=== PATIENT | male | born 1955 | race Caucasian/White ===

== ENCOUNTER 2019-08-10 12:30 | Inpatient (IN) ==
[2019-08-10] MEDS ORDERED: ASPIRIN PO ONE (12:35)
[2019-08-10 12:46] LABS: BASO# 0.01 X1000 (0.0-0.2); BASO% 0.1 % (0.0-0.8); EOS# 0.09 X1000 (0.0-0.7); EOS% 0.9 % (0.0-10.0); HEMOGLOBIN 14.6 g/dL (14.0-18.0); IMM GRAN# 0.01 X1000 (0.0-0.04); IMM GRAN% 0.1 % (0.0-0.5); LYMPH# 3.28 X1000 (1.2-3.4); LYMPH% 33.9 % (20.5-51.1); MCH 28.2 PG (27-31); MCHC 33.2 g/dL (33-37); MCV 85.1 FL (81-99); MONO# 0.71 X1000 (0.11-0.59); MONO% 7.3 % (1.7-9.3); MPV 10.2 FL (7.4-10.4); NEUT# 5.58 X1000 (1.4-6.5); NEUT% 57.7 % (42.2-75.2); PLT 310 X1000 (130-400); RBC 5.17 XMIL (4.7-6.1); RDW 14.9 % (11.5-14.5); WBC 9.68 X1000 (4.8-10.8)
[2019-08-10 12:58] LABS: INR 1.61; PROTIME 20.1 Seconds (11.0-16.0)
[2019-08-10 12:59] LABS: PTT 34.5 Seconds (22.3-41.8)
--- NOTE | 2019-08-10 13:05 | EKG Report ---
Test Performed on : 08/10/2019 12:35:42 PM Test Reason : cp Blood Pressure : / mmHG Vent. Rate : 064 BPM Atrial Rate : 064 BPM P-R Int : 158 ms QRS Dur : 092 ms QT Int : 392 ms P-R-T Axes : 075 072 082 degrees QTc Int : 404 ms Sinus rhythm. with occasional premature ventricular complexes. Otherwise normal ECG When compared with ECG of 17-JUL-2016 06:34, premature ventricular complexes. are now present Confirmed by Rafael Florez MD ([id number]) on 08/12/2019 9:30:58 PM
[2019-08-10 13:29] LABS: AGAP 13; BUN 12 mg/dL (8-22); CHLORIDE 106 mmol/L (98-107); COSMO 287; CREATININE 0.7 mg/dL (0.7-1.2); GLUCOSE 175 mg/dL (70-104); POTASSIUM 4.5 mmol/L (3.5-5.1); SODIUM 142 mmol/L (136-145); TCO2 23 mmol/L (25-35)
[2019-08-10 13:30] LABS: ALBUMIN 4.2 g/dL (3.5-5.0); ALKALINE PHOSPHATASE 97 U/L (32-122); CK PROFILE 100 U/L (24-204); GOT 21 U/L (10-34); GPT 29 U/L (10-44); TOTAL PROTEIN 7.5 g/dL (6.3-8.3)
--- NOTE | 2019-08-10 13:55 | Diag Imaging Result Doc PS360 ---
EXAM: CHEST-2 VIEWS HISTORY: cp TECHNIQUE: Two views COMPARISON: 09/29/2017 FINDINGS: The lungs are well expanded. The heart is not enlarged. The vessels are not distended. There are no infiltrates. No pleural effusions. Scattered granuloma. IMPRESSION: No acute abnormality. Electronically signed by Damian Andrew 08/10/2019 1:52 PM
[2019-08-10] MEDS ORDERED: TYLENOL PO PRN (15:25)
[2019-08-10] MEDS ORDERED: ZOFRAN IV PRN (15:25)
[2019-08-10] MEDS ORDERED: MORPHINE IV PRN (15:25)
[2019-08-10] MEDS ORDERED: NITROGLYCERIN SL PRN (15:25)
--- NOTE | 2019-08-10 15:26 | Diag Imaging Result Doc PS360 ---
EXAM: CT ANGIOGRM PULMONARY ARTERIES HISTORY: chest pain; sob; hx of PE TECHNIQUE: CT abdomen and pelvis with intravenous contrast. Pulmonary arterial protocol with MIP images. COMPARISON: 07/17/2016 FINDINGS: Normal opacification of the pulmonary arteries and their proximal branches. No aortic aneurysm or dissection. No cardiomegaly. Mild vascular distention. There are calcified mediastinal and hilar lymph nodes with scattered granuloma. No pleural effusions. No consolidation. No bronchiectasis. There are two oblong noncalcified densities measuring 6 x 8 mm in the mid right lung on images 83 and 85. There is also a 4 x 6 mm noncalcified nodule inferiorly in the right lower lobe on image 104. There is basilar atelectasis. Limited images through the upper abdomen reveal a stable left adrenal nodule. IMPRESSION: 1.No pulmonary emboli 2.Mild pulmonary edema 3.There is evidence of a prior granulomatous infection 4.Small nonspecific right lung nodules 5.Basilar atelectasis This exam was performed using automated exposure control, adjustment of mA or kV according to patient size, and/or use of iterative reconstruction technique. Electronically signed by Damian Andrew 08/10/2019 3:24 PM
--- NOTE | 2019-08-10 15:39 | PROVIDER DOCUMENTATION ---
This chart was entered by Martínez Henriquez Scribe, acting as scribe for Rafael Florez MD. HPI-Chest Pain - General Chief Complaint: Chest Pain Stated Complaint: CHEST PAIN Time Seen by Provider: 08/10/19 12:35 Source: patient, family Allergies/Adverse Reactions: Patient Allergies Allergy/AdvReac Type Severity Reaction Status Date / Time adhesive Allergy RASH Verified 02/16/18 12:55 iodine Allergy RASH Verified 02/16/18 12:55 latex Allergy RASH Verified 02/16/18 12:55 Home Medications: Home Medication List Medication Instructions Recorded Confirmed Last Taken Type ATORVAstatin [Lipitor] 80 mg PO HS 07/16/16 02/16/18 07/29/16 20:00 History Metformin [Glucophage] 1,000 mg PO DAILY 07/16/16 02/16/18 07/30/16 07:00 History Rivaroxaban [Xarelto] 20 mg PO DAILY #180 tablet 07/19/16 02/16/18 07/30/16 07:00 Rx Acetaminophen with Codeine 1 ea PO Q6H PRN PRN #14 tab 02/16/18 Unknown Rx [Tylenol with Codeine #3 Tablet] Insulin Humulin 70/30 [Humulin 50 units SQ WSUPPER 02/16/18 02/16/18 Unknown History 70/30] Insulin Humulin 70/30 [Humulin 56 units SQ QAM 02/16/18 02/16/18 Unknown History 70/30] Metoprolol Tartrate 12.5 mg PO BID 02/16/18 02/16/18 Unknown History Pantoprazole Sodium 40 mg PO DAILY 02/16/18 02/16/18 Unknown History - History of Present Illness-CP Nature of Presenting Problem: 64 yom presents to the ed w/ c/o CP. pt states onset yesterday w/ multi episodes w/ 4 episodes today. pt states CP (int) rads into neck and Lt arm ,"different pain than before." pt states CP usually starts in Rt arm. " pt states CP stays for 1hr-2 hrs then slacks off ,then when i go to take Nitro the pain slacks off again." pt states "when im laying down CP is ok when i get up or walk CP comes back." pt states having 2 cardiac stents one in 2009 2nd in 2012. pt has hx of A-FIB and hx of 1 heart attack. pt states " saw Heart physician month ago to check stints, had echo ,treadmill w/ chemical, everything checked out fine." pt states " N-last night , and broke out into sweat around 10 am this morning , had to stop walking." Location: reports: other (Lt sided) Chest Pain Radiation: reports: neck, other (LT arm) Quality of Pain: reports: aching Severity in ED: mild Onset/Duration: 24 hours ago Timing: intermittent Context/Activities at Onset: reports: light activity Modifying Factors: improves with: lying down (or sitting). worse with: movement Associated Symptoms: reports: denies symptoms Nitro Today/Relief: no nitro taken today Aspirin Treatment Today: provided by ED Prior Chest Pain/Cardiac Workup: reports: heart attack, other (hx of A-Fib , 2 cardiac stent) Similar Symptoms Previously?: No Recently Seen Here or By Another Healthcare Provider: No Review of Systems - Adult - REVIEW OF SYSTEMS - ADULT Constitutional: denies: chills, fever Eyes: reports: no symptoms reported Ears, Nose, Mouth & Throat: reports: no symptoms reported Cardiovascular: reports: see HPI, chest pain. denies: palpitations, syncope Respiratory: reports: no symptoms reported Gastrointestinal: denies: abdominal pain, constipation, diarrhea, vomiting Genitourinary: reports: no symptoms reported Musculoskeletal: reports: see HPI, neck pain Integumentary: reports: no symptoms reported Neurological: reports: no symptoms reported Psychiatric: reports: no symptoms reported Endocrine: reports: no symptoms reported Hematologic/Lymphatic: reports: no symptoms reported Allergic/Immunologic: reports: no symptoms reported All Other Systems: Reviewed and Negative Past History - Adult - PAST MEDICAL HISTORY-ADULT Review of Records: reports: Old Records Reviewed, Nursing Assessment Review, Medications Reviewed, Social history reviewed & non-contributory. Major Childhood Illnesses: reports: denies history Cardiovascular: reports: CAD, HTN, hyperlipidemia, MD Respiratory: reports: denies history Gastrointestinal: reports: GERD Obstetrical/Gynecological: reports: denies history Genitourinary: reports: kidney stones (passed renal stones), other (TURP July 15, 2016) Musculoskeletal: reports: denies history Neurological: reports: denies history Psychiatric: reports: denies history Endocrine/Immune: reports: Diabetes Other Conditions: reports: denies history - PRIOR SURGERIES/PROCEDURES Surgical/Procedure History: reports: cardiac stent, other (TURP) - IMMUNIZATION STATUS Childhood Immunizations: See Nurse Assessment Flu Vaccine: See Nurse Assessment - FAMILY HISTORY Family History: reviewed, not pertinent - SOCIAL HISTORY Smoking: quit greater than 1 year, cigarettes Substance Use: denies Physical Exam-General - PHYSICAL EXAM-ADULT Initial Vital Signs Reviewed: Yes - CONSTITUTIONAL General Appearance: appears well, alert, mild distress - NECK Neck: normal inspection - RESPIRATORY Respiratory: chest non-tender, lungs clear, normal breath sounds - CARDIOVASCULAR Cardiovascular: normal peripheral pulses, regular rate, rhythm - GASTROINTESTINAL (ABDOMEN) Abdominal Exam: normal bowel sounds, soft, tenderness (w/ palpaltion) - GENITOURINARY Male Genitalia: deferred Rectal Exam: deferred Hemoccult Exam: deferred - MUSCULOSKELETAL Extremity: normal inspection - SKIN Integumentary: normal color, normal turgor, warm/dry - NEUROLOGIC Neurologic: grossly normal, no motor/sensory deficits - PSYCHIATRIC Psych/Mental Status: normal mood/affect, normal thought content, normal thought process, oriented x 3 - HEART Score HEART Score: Age: 45-65 Years Progress - PLAN OF CARE/RESULTS Progress/Plan/Lab Results: Vital Signs - 8 hr 08/10/19 12:32 08/10/19 13:15 08/10/19 15:09 Temperature 97.9 F Pulse Rate 70 62 60 Respiratory Rate 20 16 14 Blood Pressure 146/76 124/68 149/77 O2 Sat by Pulse Oximetry 95 93 L 96 Laboratory Results - last 24 hr 08/10/19 08/10/19 08/10/19 12:40 12:40 12:40 WBC 9.68 RBC 5.17 Hgb 14.6 Hct 44.0 MCV 85.1 MCH 28.2 MCHC 33.2 RDW Std Deviation 14.9 H Plt Count 310 MPV 10.2 Immature Gran % (Auto) 0.1 Neut % (Auto) 57.7 Lymph % (Auto) 33.9 [place] % (Auto) 7.3 Eos % (Auto) 0.9 Baso % (Auto) 0.1 Immature Gran # (Auto) 0.01 Neut # (Auto) 5.58 Lymph # (Auto) 3.28 [place] # (Auto) 0.71 H Eos # (Auto) 0.09 Baso # (Auto) 0.01 PT INR PTT (Actin FS) D-Dimer, Quantitative Sodium 142 Potassium 4.5 Chloride 106 Carbon Dioxide 23 L Anion Gap 13 BUN 12 Creatinine 0.7 BUN/Creatinine Ratio 17 Glucose 175 H Calculated Osmolality 287 Calcium 10.0 Total Bilirubin 0.40 AST 21 ALT 29 Alkaline Phosphatase 97 Creatine Kinase 100 Troponin T Kzc-V-Ioliqerdacg Pept 142 Total Protein 7.5 Albumin 4.2 Globulin 3.0 Albumin/Globulin Ratio 1.0 Plasma Lactate 08/10/19 08/10/19 08/10/19 12:40 12:40 12:40 WBC RBC Hgb Hct MCV MCH MCHC RDW Std Deviation Plt Count MPV Immature Gran % (Auto) Neut % (Auto) Lymph % (Auto) [place] % (Auto) Eos % (Auto) Baso % (Auto) Immature Gran # (Auto) Neut # (Auto) Lymph # (Auto) [place] # (Auto) Eos # (Auto) Baso # (Auto) PT 20.1 H INR 1.61 PTT (Actin FS) 34.5 D-Dimer, Quantitative < 0.27 Sodium Potassium Chloride Carbon Dioxide Anion Gap BUN Creatinine BUN/Creatinine Ratio Glucose Calculated Osmolality Calcium Total Bilirubin AST ALT Alkaline Phosphatase Creatine Kinase Troponin T < 0.010 Fln-K-Eenbcxminbn Pept Total Protein Albumin Globulin Albumin/Globulin Ratio Plasma Lactate 08/10/19 08/10/19 08/10/19 14:39 14:39 14:39 WBC RBC Hgb Hct MCV MCH MCHC RDW Std Deviation Plt Count MPV Immature Gran % (Auto) Neut % (Auto) Lymph % (Auto) [place] % (Auto) Eos % (Auto) Baso % (Auto) Immature Gran # (Auto) Neut # (Auto) Lymph # (Auto) [place] # (Auto) Eos # (Auto) Baso # (Auto) PT INR PTT (Actin FS) D-Dimer, Quantitative Sodium Potassium Chloride Carbon Dioxide Anion Gap BUN Creatinine BUN/Creatinine Ratio Glucose Calculated Osmolality Calcium Total Bilirubin AST ALT Alkaline Phosphatase Creatine Kinase 92 Troponin T < 0.010 Sae-J-Dmoethrifwv Pept Total Protein Albumin Globulin Albumin/Globulin Ratio Plasma Lactate 2.0 Orders Category Date Time Status Admit - [facility] Routine AdmDCTranf 08/10/19 15:25 Active Cardiac Monitoring DIRECTED Care 08/10/19 12:36 Completed Oxygen Therapy- ED Nursing DIRECTED Care 08/10/19 12:36 Active Saline Loc NOW Care 08/10/19 12:36 Completed Update & Confirm Home Medicati ROUTINE Care 08/10/19 15:25 Active Diabetic Diet Diet 08/10/19 15:25 Active CHEST-2 VIEWS [RAD] Stat Exams 08/10/19 12:[address] ANGIOGRM PULMONARY ARTERIES [CT] Stat Exams 08/10/19 14:08 Completed C REACTIVE PROT QUANT [CHEM] Stat Lab 08/10/19 12:40 Received CBC WITH ELECTRONIC DIFF [HEME] Stat Lab 08/10/19 12:40 Completed CK PROFILE [SP CHEM] Stat Lab 08/10/19 12:40 Completed CK PROFILE [SP CHEM] Stat Lab 08/10/19 14:39 Completed CK TOTAL [CHEM] Q8H Lab 08/10/19 15:30 Ordered CK TOTAL [CHEM] Q8H Lab 08/10/19 23:30 Ordered CK TOTAL [CHEM] Q8H Lab 08/11/19 07:30 Ordered COMPREHENSIVE METABOLIC PANEL [CHEM] Stat Lab 08/10/19 12:40 Completed D-DIMER [COAG] Stat Lab 08/10/19 12:40 Completed LACTATE, PLASMA [CHEM] Stat Lab 08/10/19 14:39 Completed PRO B-NATRIURETIC PEPTIDE Stat Lab 08/10/19 12:40 Completed PROTIME WITH INR [COAG] Stat Lab 08/10/19 12:40 Completed PTT [COAG] Stat Lab 08/10/19 12:40 Completed TROPONIN T Q8H Lab 08/10/19 15:30 Ordered TROPONIN T Q8H Lab 08/10/19 23:30 Ordered TROPONIN T Q8H Lab 08/11/19 07:30 Ordered TROPONIN T Stat Lab 08/10/19 12:40 Completed TROPONIN T Stat Lab 08/10/19 14:39 Completed Acetaminophen [Tylenol] Med 08/10/19 15:25 Active 650 mg PO Q6H PRN PRN Aspirin Med 08/11/19 09:00 Active 325 mg PO DAILY Aspirin Med 08/10/19 12:35 Discontinued 325 mg PO NOW ONE Morphine Med 08/10/19 15:25 Active See Dose Instructions IV Q5M PRN PRN Nitroglycerin Sl [Nitroglycerin] Med 08/10/19 15:25 Active 0.4 mg SL Q5M PRN PRN Ondansetron [Zofran] Med 08/10/19 15:25 Active 4 mg IV Q4H PRN PRN CP/SOB/Palp >45 yrs of Age Stat Oth 08/10/19 12:35 Ordered EKG [EKG] Stat Ther 08/10/19 12:36 Draft EKG [EKG] Stat Ther 08/10/19 14:02 Ordered Echo Spec/Color Doppler Routine Ther 08/10/19 15:25 Ordered Venous U/S Bilateral Legs Routine Ther 08/10/19 15:17 Ordered Transfer/Admit Order [TRANSFER] Routine Transfer 08/10/19 15:19 Ordered Result Diagrams: 08/10/19 12:40 08/10/19 12:40 - EKG 1 Time of EKG reading by physician:: 12:35 EKG Read and Signed by:: Rafael Florez EKG Interpretation (*Must complete 3 of following elements*): Normal Rate: 64 Rhythm: sinus rhythm w/ occasional premature ventricular complexes [place]: normal QRS: normal DC Interval: normal ST Wave: normal Comments: Voltage criteria for Lt ventricular hypertrophy/prolonged QT - XRAY 1 XRAY Study: Chest Impression: Normal, See EMR Report ( EXAM: CHEST-2 VIEWS HISTORY: cp TECHNIQUE: Two views COMPARISON: 09/29/2017 FINDINGS: The lungs are well expanded. The heart is not enlarged. The vessels are not distended. There are no infiltrates. No pleural effusions. Scattered granuloma. IMPRESSION: No acute abnormality. Electronically signed by Damian Andrew 08/10/2019 1:52 PM 08/10/19 1352 Interpreting Physician: Damian Andrew MD Dictated Date/Time: 08/10/19 1352 cc: Rafael Florez MD; Lee Ann Ashley) - CONSULTS/PCP/HOSPITALIST Notification #1 *Consult/PCP/Hospitalist*: consult w/ [facility] Time Discussed: 13:56 Consult Disposition: Admit #2 Consult: consult w/ hSeldon Time Discussed: 15:19 (check on bed placement) Consult Disposition: Admit Departure - Departure Date of Disposition Decision: 08/10/19 Time of Disposition Decision: 15:39 DIAGNOSIS: Anginal pain, CAD (coronary artery disease) Disposition: ADMITTED INPATIENT 09 Certified Medical Emergency: Emergent Condition: Stable Referrals and Follow-Ups: Lee Ann Ashley CRNP [Primary Care Provider] - - Critical Care Note This patient required my direct & personal management of CC.: No Attestation - Physician/ AILEEN Attestation Patient care was provided by Advanced Practice Provider:: No The physician spent face to face time with patient:: Yes Advanced Practice Provider documentation review:: Supervising physician onsite and consulted in the evaluation and care of this patient. The physician did have a face to face encounter with the patient. This chart was documented by the indicated scribe, (Martínez Henriquez, Adeel) and accurately reflects the services I performed and decisions made by me, Rafael Florez MD, as attested by the provider's signature.
--- NOTE | 2019-08-10 17:20 | EKG Report ---
Test Performed on : 08/10/2019 5:07:05 PM Test Reason : repeat Blood Pressure : / mmHG Vent. Rate : 061 BPM Atrial Rate : 061 BPM P-R Int : 166 ms QRS Dur : 096 ms QT Int : 408 ms P-R-T Axes : 057 055 070 degrees QTc Int : 410 ms Sinus rhythm. with occasional premature ventricular complexes. Septal infarct , age undetermined Abnormal ECG When compared with ECG of 10-AUG-2019 12:35, (Unconfirmed) Septal infarct is now present Confirmed by Rafael Florez MD ([id number]) on 08/12/2019 9:28:40 PM
[2019-08-10] MEDS ORDERED: LOVENOX SUBQ SCH (20:00)
--- NOTE | 2019-08-10 20:06 | Diag Imaging Result Doc PS360 ---
EXAM: CT ABDOMEN W/CONTRAST HISTORY: rebound tenderness TECHNIQUE: CT abdomen with contrast COMPARISON: 02/16/2018 FINDINGS: No inflammation about the gallbladder. There is mild fatty infiltration of the liver. No splenomegaly. No inflammation about the pancreas. Stable small left adrenal nodule. Normal right adrenal gland. Normal kidneys. No hydronephrosis. Mild to moderate atherosclerosis. No aortic aneurysm. No bowel obstruction. Normal appendix. No abscess. No ascites. IMPRESSION: Fatty infiltration of the liver This exam was performed using automated exposure control, adjustment of mA or kV according to patient size, and/or use of iterative reconstruction technique. Electronically signed by Damian Andrew 08/10/2019 8:03 PM
--- NOTE | 2019-08-10 20:07 | Diag Imaging Result Doc PS360 ---
EXAM: ABDOMEN FLAT/UPRIGHT HISTORY: rebound tenderness TECHNIQUE: Three views COMPARISON: 09/29/2017 FINDINGS: No free air beneath the diaphragm. No organomegaly. No bowel obstruction. Intravenous contrast is present in the collecting systems. No hydronephrosis. Urinary bladder is distended and appears normal. IMPRESSION: Negative exam. Electronically signed by Damian Andrew 08/10/2019 8:04 PM
--- NOTE | 2019-08-10 21:38 | EKG Report ---
Test Performed on : 08/10/2019 9:27:40 PM Test Reason : chest pain Blood Pressure : / mmHG Vent. Rate : 057 BPM Atrial Rate : 057 BPM P-R Int : 172 ms QRS Dur : 098 ms QT Int : 428 ms P-R-T Axes : 062 056 067 degrees QTc Int : 416 ms Sinus bradycardia. Otherwise normal ECG When compared with ECG of 10-AUG-2019 17:07, (Unconfirmed) premature ventricular complexes. are no longer present Criteria for Septal infarct are no longer present Confirmed by Mirian JIMENEZ, Luis ([id number]) on 08/12/2019 9:21:12 AM
--- NOTE | 2019-08-10 22:15 | HISTORY AND PHYSICAL ---
PRIMARY CARE PROVIDERS: TORO Bone and Aden Elmore MD. PRIMARY PARACHUTE INSPECTOR: Dr. Garrett. CHIEF COMPLAINT: Chest pain. HISTORY OF PRESENT ILLNESS: Mr. Luis Casas is a 64-year-old male with a medical history of coronary artery disease and UT in 2009 along with a stent, and another stent in 2013, who is presenting with complaints of chest pain. He had a stress test last April that had a suspicious electrocardiographic clinical response to a walking Lexiscan. However, it showed an essentially normal post-stress myocardial perfusion. There was no evidence of pharmacologically- induced myocardial ischemia and normal LV function, but given his medical history, we will proceed with cardiac workup. He states the chest pain started today when he was moving things around. It started in the right axillary region and went all the way across his chest into and down his left arm. It lasted for at least 2 hours today. He says it also happened last night, and that he had nausea with that one today. He had sweating. He was dizzy. He still feels dizzy and lightheaded. Currently he is pain free from his chest pain, with other assessment findings of tenderness in the abdomen in all 4 quadrants. He has had a history of PE in the past. A CTA was ordered, and that was negative for PE this time. PAST MEDICAL HISTORY: 1. Coronary artery disease with stents placed in 2009 in 2013. Had an UT in 2009. 2. Hypertension. 3. Dyslipidemia. 4. Diabetes mellitus type 2. 5. Paroxysmal atrial fibrillation. 6. Pulmonary emboli and left lower extremity DVT in June 2016, for which he has been on Xarelto. 7. GERD. 8. Chronic left lower extremity numbness. 9. BPH. SURGICAL HISTORY: 1. Cardiac stents x2. 2. TURP. 3. Skin lesions removed and frozen on his face. SOCIAL HISTORY: Quit smoking in 1995, but he had started at the age of 18 and smoked 3 packs per day. Denies alcohol or illicit drug use. He is , on disability. No children. 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 FAMILY HISTORY: Father had a heart attack at 86. He had 2 brothers who had heart attacks, and his mother from leukemia. ALLERGIES: Iodine and latex. HOME MEDICATIONS: Have not been reconciled. What what is listed so far is metformin, insulin 70/30, Lipitor, metoprolol, Protonix, Tylenol 3 and Xarelto, but yet still needs to be reconciled. REVIEW OF SYSTEMS: Fourteen point review of systems is complete, and all are negative for those mentioned above HPI. PHYSICAL EXAMINATION: VITAL SIGNS: Temperature 97.9, heart rate 59, respiratory rate 18, blood pressure 131/68, O2 saturation 95% on room air. GENERAL: Mr. Luis Casas is a 64-year-old male. He is in no acute distress, able answer questions appropriately. HEENT: He has some red spots on his face, but this is from skin lesions being burned off or frozen. Otherwise atraumatic, normocephalic. Pupils equal, round, reactive to light. Extraocular movements intact. Mucous membranes are moist. NECK: Trachea midline. CARDIOVASCULAR: S1, S2. Regular rate and rhythm. No rubs, gallops, or murmurs. Trace lower extremity edema, +2 dorsalis and radial pulses. Negative JVD or carotid bruits. PULMONARY: Clear to auscultation, bilateral breath sounds. No accessory muscle use or work of breathing noted. GI: Soft. Tender in all 4 quadrants. Positive bowel sounds x4. EXTREMITIES: Moves all extremities equally. Full range of motion. NEUROLOGIC: A and O x3. Follows commands. Sensory is intact. SKIN: Warm, dry, intact. LABORATORY DATA: White blood cells 9000, hemoglobin 14, hematocrit 44, platelet count 310. INR is 1.61, PTT is 34.5. D-dimer is less than 0.27. Sodium 142, potassium 4.5, BUN 12, creatinine 0.7 glucose 175, calcium 10. Bilirubin 0.40, AST 21, ALT 29. CK 92, troponin less than 0.01. ProBNP 142. Albumin is 4.2. Lactate 2.0. IMAGING: Chest x-ray no acute findings. EKG - sinus rhythm, occasional PVCs, rate 64, and QTc 404. Pulmonary arteriogram: No pulmonary emboli, mild pulmonary edema. There is evidence of a prior granulomatosis infection. Small nonspecific right lung nodules and bibasilar atelectasis. ASSESSMENT AND PLAN: 1. Chest pain with history of coronary artery disease, myocardial infarction and stents, followed by Dr. Garrett. Had a stress test in April. We could repeat a stress test today. I am going to transfer him to [facility] and consult Cardiology. Serial cardiac enzymes, EKGs. No ST elevations on his EKG. 2. History of atrial fibrillation, but he is currently sinus rhythm, and he takes Xarelto at home. 3. History of pulmonary embolism and deep venous thrombosis. He is negative for pulmonary embolism this admit. Will make sure there is no deep venous thrombosis. Still continues to have left leg pain; however, D-dimer is negative, and will continue him on the Xarelto. 4. Diabetes mellitus type 2. Will do pattern blood glucoses and sliding scale insulin. Diabetic diet. 5. History of hypertension. Continue beta zhane once it is verified. 6. Hyperlipidemia. Continue statin once it is verified. 7. Gastroesophageal reflux disease. We will continue Protonix. 8. Deep venous thrombosis prophylaxis. Again, he will be resumed on Xarelto. Dictated by TORO Galindo for Balwinder Concepcion MD Addendum: Patient seen and examined by myself. Agree with TORO note. It reflects my assessment and plan. Patient is being admitted to hospital for chest pain. Workup under progress. Because of known CAD will transfer this patient to [facility] and will monitor patient closely. Cardiology will be consulted. cc: TORO Galindo MD [facility]
[2019-08-11 06:22] LABS: BASO# 0.02 X1000 (0.0-0.2); BASO% 0.2 % (0.0-0.8); EOS# 0.15 X1000 (0.0-0.7); EOS% 1.7 % (0.0-10.0); HEMATOCRIT 44.4 % (42.0-52.0); HEMOGLOBIN 14.7 g/dL (14.0-18.0); LYMPH% 31.3 % (20.5-51.1); MCH 28.6 PG (27-31); MCHC 33.1 g/dL (33-37); MCV 86.4 FL (81-99); MONO# 0.82 X1000 (0.11-0.59); MONO% 9.5 % (1.7-9.3); MPV 10.7 FL (7.4-10.4); NEUT# 4.93 X1000 (1.4-6.5); NEUT% 57.3 % (42.2-75.2); PLT 277 X1000 (130-400); RBC 5.14 XMIL (4.7-6.1); RDW 15.4 % (11.5-14.5); WBC 8.62 X1000 (4.8-10.8)
[2019-08-11 07:22] LABS: AGAP 14; ALB/GLOB RATIO 1.3; ALBUMIN 3.9 g/dL (3.5-5.0); ALKALINE PHOSPHATASE 94 U/L (32-122); BUN 11 mg/dL (8-22); CALCIUM 9.5 mg/dL (8.8-10.2); CHLORIDE 103 mmol/L (98-107); COSMO 288; CREATININE 0.8 mg/dL (0.7-1.2); ESTIMATED GFR > 60; GLUCOSE 157 mg/dL (70-104); GOT 20 U/L (10-34); GPT 26 U/L (10-44); POTASSIUM 4.2 mmol/L (3.5-5.1); SODIUM 143 mmol/L (136-145); TCO2 26 mmol/L (25-35)
[2019-08-11] MEDS ORDERED: ASPIRIN PO SCH (09:00)
[2019-08-11] MEDS: LOPRESSOR PO SCH ×2 (12:26→20:12)
--- NOTE | 2019-08-11 14:09 | PROGRESS NOTE ---
DATE: 08/11/2019 INTERVAL HISTORY: Mr. Casas was transferred from [facility] for recurrent chest pain. His troponins were unremarkable. EKG had normal sinus rhythm. SUBJECTIVE: Mr. Casas states that he keeps on having intermittent chest pain. It is located in the right shoulder, sometimes right lower chest region, and then radiating across towards the left chest area. It is sharp in nature, lasts for about 2 hours, associated with subjective feelings of shortness of breath. He states his last episode was 2 hours ago, and he took some Tylenol, but it did not really help. However, he has not tried nitroglycerin, and I instructed him to try nitroglycerin the next time. He denies any nausea or vomiting. He is also complaining of some abdominal tenderness in the right lower quadrant. OBJECTIVE: Vital Signs: Temperature of 97.7 degrees, pulse 66, respiratory rate 16, blood pressure 158/66, saturating 97% room air. General: Overweight, man, not in acute distress. HEENT: Oral cavity is moist. Lungs: Air entry bilaterally equal. No wheeze, rhonchi, crackles. Heart: S1, S2 normal. No murmur or gallop. Abdomen: Soft. There is tenderness in the right upper and right lower quadrant, left lower quadrant, and epigastric region. Active bowel sounds. There is no rebound or rigidity. Extremities: No lower extremity edema. Neck: He does not have jugular venous distention. Neurologic: He is alert and oriented x3. IMAGING AND LABORATORY DATA: Suggestive of essentially unremarkable WBC, hemoglobin, and platelet count. Normal electrolytes. His troponins were less than 0.010 x3. His lipid panel had LDL of 67. No microbiological or no new imaging. On presentation, his abdominal CT and pulmonary arteriogram were essentially unremarkable. ASSESSMENT AND PLAN: 1. Atypical chest pain at rest with history of coronary artery disease and myocardial infarction, requiring stent in 2009 and 2012. He had no reversible ischemia on stress test in 04/2019, and his echocardiogram was unremarkable at that time, without any congestive heart failure. I will appreciate Cardiology team's recommendation if he would need repeat stress test versus coronary angiography in the future. I will keep him on aspirin, atorvastatin, metoprolol, and as needed nitroglycerin. His electrocardiogram and troponins on admission did not suggest any acute coronary syndrome. 2. History of paroxysmal atrial fibrillation, currently in sinus rhythm. He takes Xarelto at home. Considering he may need intervention during this hospitalization, I am holding his Xarelto, and I will keep him on enoxaparin 40 mg for deep venous thrombosis prophylaxis. 3. History of left lower extremity deep venous thrombosis and pulmonary embolism in 2016. His current CT scan is negative for pulmonary embolism. We will keep him on subcutaneous enoxaparin for deep venous thrombosis prophylaxis dose. 4. History of insulin-dependent diabetes mellitus type 2. I will continue his home dose of insulin, metformin, and sitagliptin. 5. Essential hypertension, hyperlipidemia, chronic gastroesophageal reflux disease. I will keep him on his home medications of pantoprazole. 6. Disposition. Continue to monitor the patient inside the hospital as we await further Cardiology recommendation. I will get ultrasound of right upper quadrant to rule out acute cholecystitis, though the abdominal CT scan was unremarkable. cc: Sunny Gray MD
[2019-08-11] MEDS ORDERED: INSULIN PEN NEEDLES ONE (16:33)
[2019-08-11] MEDS: JANUVIA PO SCH (16:47)
[2019-08-11] MEDS: GLUCOPHAGE PO SCH (16:47)
[2019-08-11] MEDS: XARELTO PO SCH (16:47)
[2019-08-11] MEDS: HUMALOG MIX 75/25 SUBQ SCH (16:48)
--- NOTE | 2019-08-11 17:50 | EKG Report ---
Test Performed on : 08/11/2019 06:39:21 AM Test Reason : chest pain Blood Pressure : / mmHG Vent. Rate : 055 BPM Atrial Rate : 055 BPM P-R Int : 178 ms QRS Dur : 098 ms QT Int : 430 ms P-R-T Axes : 054 047 062 degrees QTc Int : 411 ms Sinus bradycardia. Otherwise normal ECG When compared with ECG of 10-AUG-2019 21:27, (Unconfirmed) No significant change was found Confirmed by Mirian JIMENEZ, Luis ([id number]) on 08/12/2019 9:21:30 AM
--- NOTE | 2019-08-11 18:13 | CONSULTATION ---
DATE OF CONSULTATION: 08/11/2019 CARDIOLOGY CONSULTATION: IMPRESSION: 1. Episode of chest discomfort with probably atypical features for myocardial ischemia. 2. Atherosclerotic coronary disease. A. Status post coronary angioplasty/stenting of left circumflex coronary. B. Status post coronary angioplasty/stenting of the right coronary artery in 2012. Repeat coronary angiography in 2014 demonstrates stents patent, and continued medical management recommended. D. Status post stress myocardial perfusion imaging in 2016 and again 3 months ago, both of which demonstrated no convincing scintigraphic evidence of inducible myocardial ischemia. 3. Hypertension. 4. Hyperlipidemia. 5. Type 2 diabetes mellitus. 6. Paroxysmal atrial fibrillation. 7. History of left lower extremity deep vein thrombosis and pulmonary embolus June 2016. He continues on chronic anticoagulation with Xarelto. 8. Gastroesophageal reflux disease. RECOMMENDATIONS: 1. Recommend continued medical management of patient's coronary atherosclerosis unless objective findings for myocardial ischemia are evident in patient's cardiac enzymes or serial ECGs. 2. Abdominal ultrasound to screen for biliary disease. 3. Continue and augment current medical regimen for angina. HISTORY: This 64-year-old white male with past history of atherosclerotic coronary disease as outlined above, some recurrent chest discomfort atypical for myocardial ischemia in the past, type 2 diabetes mellitus, hypertension, hyperlipidemia, and previous DVT/pulmonary embolus in June 2016 was admitted for further action of chest pain. He reports an episode of chest discomfort last night that started in his right axilla and then extended across the chest. Discomfort is characterized as being crampy in nature. Discomfort also seemed to extend to his left arm. Discomfort lasted approximately an hour. Symptoms started at rest. He had another episode this morning that lasted 2 hours that began after breakfast. Chest discomfort is characterized as being different from what he experienced with his previous myocardial infarction in the past which he characterizes as a heaviness in the center of the chest with associated shortness of breath. PAST MEDICAL HISTORY: 1. Atherosclerotic coronary disease as outlined above. 2. Hypertension. 3. Hyperlipidemia. 4. Type 2 diabetes mellitus. 5. Paroxysmal atrial fibrillation. 6. Pulmonary emboli and left lower extremity deep vein thrombosis in June 2016. Treated with Xarelto. 7. Gastroesophageal reflux disease. 8. Prostate hypertrophy. PAST SURGICAL HISTORY: Also includes transurethral resection of prostate and removal of several skin lesions from the face. ALLERGIES: He is allergic or intolerant of adhesive, iodine, and latex. MEDICATIONS PRIOR TO ADMISSION: As listed. SOCIAL HISTORY: He has history of previous smoking but discontinued this in 1995. And previously smoked 3 packs of cigarettes per day. He does not use alcohol. FAMILY HISTORY: Negative for premature coronary disease. REVIEW OF SYSTEMS: Pulmonary: Noncontributory beyond history of present illness. Gastrointestinal: Noncontributory beyond history of present illness. Constitutional: Noncontributory beyond history of present illness. Remainder of review of systems negative/noncontributory beyond history present illness with 14 total systems reviewed. PHYSICAL EXAMINATION: General: This is a pleasant, older white male in no distress. Vital signs: Blood pressure 158/66, heart rate 66, oxygen saturation 97% on room air. HEENT: Extraocular movements appear intact. Mucous membranes are moist. Neck: Supple without jugular venous distention. There are no carotid bruits. Chest: Clear to auscultation. Cardiac Exam: Reveals a regular rate and rhythm without appreciable murmur or gallop. Abdomen: Soft. Bowel sounds are normal. Extremities: Without edema. Neurologic: Reveals him to be alert and fully oriented. Speech is fluent. Moves all 4 extremities equally well. Skin: Warm and dry. Psychiatric: Reveals his mood to be appropriate. PERTINENT DATA: Twelve-lead electrocardiogram demonstrates sinus bradycardia but is otherwise within normal limits. LABORATORY DATA: Includes initial troponin less than 0.01. Follow-up troponin less than 0.01, less than 0.01, less than 0.01, and less than 0.01. White blood cell count 8.62, hematocrit 44.4, hemoglobin 14.7, platelet count 277,000. Sodium 143, potassium 4.2, chloride 103, carbon dioxide 26, BUN 11, creatinine 0.8, glucose 157. Total cholesterol 137. Triglycerides 137, total cholesterol 114, VLDL cholesterol 27, HDL cholesterol 35, LDL cholesterol 67. cc: Aleksandr Manzano MD
--- NOTE | 2019-08-11 19:15 | Diag Imaging Result Doc PS360 ---
EXAM: US GB < RUQ (LIMITED) INDICATION: R/o acute cholecystitis COMPARISON: 08/30/2018 FINDINGS: The gallbladder is partially contracted as the patient is not fasting. No shadowing stones, wall thickening, or pericholecystic fluid is appreciated, however. The common bile duct is normal in diameter. The liver is mildly prominent measuring up to 19.2 cm in length. The liver echotexture is slightly increased diffusely suggesting hepatic steatosis. Portal venous flow is hepatopetal. The pancreas is largely obscured. The visualized portion is unremarkable. The aorta and IVC are obscured. The right kidney is grossly unremarkable. IMPRESSION: 1.Contracted gallbladder but no gallstones or definite gallbladder wall thickening appreciated. 2.Mildly prominent liver with evidence of mild hepatic steatosis. Electronically signed by Jabier Diaz 08/11/2019 7:13 PM
[2019-08-11] MEDS: LIPITOR PO SCH (20:13)
[2019-08-11] MEDS: RANEXA PO SCH (20:13)
[2019-08-12 06:17] LABS: BASO# 0.01 X1000 (0.0-0.2); BASO% 0.1 % (0.0-0.8); EOS# 0.13 X1000 (0.0-0.7); EOS% 1.6 % (0.0-10.0); HEMATOCRIT 43.3 % (42.0-52.0); HEMOGLOBIN 14.2 g/dL (14.0-18.0); LYMPH# 2.25 X1000 (1.2-3.4); LYMPH% 27.3 % (20.5-51.1); MCH 28.1 PG (27-31); MCHC 32.8 g/dL (33-37); MCV 85.7 FL (81-99); MONO# 0.71 X1000 (0.11-0.59); MONO% 8.6 % (1.7-9.3); MPV 10.7 FL (7.4-10.4); NEUT# 5.15 X1000 (1.4-6.5); NEUT% 62.4 % (42.2-75.2); PLT 285 X1000 (130-400); RBC 5.05 XMIL (4.7-6.1); WBC 8.25 X1000 (4.8-10.8)
[2019-08-12 07:27] LABS: AGAP 14; ALB/GLOB RATIO 1.3; ALBUMIN 3.9 g/dL (3.5-5.0); ALKALINE PHOSPHATASE 91 U/L (32-122); BUN 15 mg/dL (8-22); CALCIUM 9.2 mg/dL (8.8-10.2); CHLORIDE 103 mmol/L (98-107); COSMO 292; CREATININE 0.9 mg/dL (0.7-1.2); ESTIMATED GFR > 60; GLUCOSE 268 mg/dL (70-104); GOT 15 U/L (10-34); GPT 23 U/L (10-44); POTASSIUM 4.2 mmol/L (3.5-5.1); SODIUM 141 mmol/L (136-145); TCO2 24 mmol/L (25-35); TOTAL BILIRUBIN 0.45 mg/dL (0.20-1.00); TOTAL PROTEIN 6.8 g/dL (6.3-8.3)
[2019-08-12] MEDS: HUMALOG MIX 75/25 SUBQ SCH ×2 (08:32→17:17)
[2019-08-12] MEDS: GLUCOPHAGE PO SCH ×2 (08:33→17:16)
[2019-08-12] MEDS: LOPRESSOR PO SCH ×2 (08:33→21:04)
[2019-08-12] MEDS: RANEXA PO SCH ×2 (08:33→21:04)
[2019-08-12] MEDS: ASPIRIN PO SCH (08:36)
[2019-08-12] MEDS: JANUVIA PO SCH ×2 (08:36→17:16)
[2019-08-12] MEDS: PROTONIX PO SCH (08:36)
--- NOTE | 2019-08-12 16:24 | PROGRESS NOTE ---
DATE: 08/12/2019 SUBJECTIVE: Patient continues without chest discomfort or shortness of breath on room air. OBJECTIVE: Vital Signs: Blood pressure 139/62, heart rate 64, oxygen saturation 92 to 94 percent on room air. There is no significant jugular venous distention. Chest is clear to auscultation. Cardiac: Reveals a regular rate and rhythm without appreciable murmur or gallop. There is no evidence of peripheral edema. LABORATORY DATA: Includes a white blood cell count 8.25, hematocrit 43.3, hemoglobin 14.2, platelet count 285,000. Sodium 141, potassium 4.2, chloride 103, carbon dioxide 24, BUN 15, creatinine 0.9. Glucose 268. Initial troponin less than 0.01. Followup troponins less than 0.01, less than 0.01, less than 0.01, less than 0.01. Abdominal ultrasound reports no evidence of cholelithiasis with gallbladder appearing contracted. IMPRESSION: 1. Recent chest symptoms atypical for myocardial ischemia. Serial troponins normal. Fairly recent stress myocardial perfusion study 3 months ago negative for evidence of inducible myocardial ischemia. Suspect symptoms likely noncardiac. 2. Atherosclerotic coronary disease. 3. Hypertension. 4. Hyperlipidemia. 5. Type 2 diabetes mellitus. 6. Paroxysmal atrial fibrillation. 7. History of left lower extremity deep vein thrombosis with pulmonary embolus in June 2016. He continues on chronic anticoagulation with Xarelto. 8. Gastroesophageal reflux disease. RECOMMENDATIONS: 1. Continue augmented medical therapy for patient's coronary atherosclerosis. 2. The patient appears clinically stable from cardiology standpoint to go home. He should have followup with his regular crystal report developer, Dr. Garrett, following discharge. cc: Aleksandr Manzano MD
[2019-08-12] MEDS: XARELTO PO SCH (17:16)
--- NOTE | 2019-08-12 18:54 | PROGRESS NOTE ---
DATE: 08/12/2019 INTERVAL HISTORY: Patient says he still continues to have occasional chest pain in the right side of the chest, which goes across his chest. He takes some deep breaths and it gets better. I discussed with him about unremarkable nuclear medicine stress test in April 2019 and conservative management as per our cardiology team. He has been started on Ranexa and ranolazine, and after discussion with patient, considering his chest pain episode, we decided to keep him in the hospital for another 24 hours to monitor him. His troponins have been unremarkable. I will also repeat EKG in the morningtime since his chest pain episodes are usually during morningtime. Since his chest pain episodes are usually in the morningtime, I will also add nighttime antacid medications to see if that helps him. Otherwise, he denies any shortness of breath. He states he does not have any transport to go home today in any case, so we will keep him in the hospital. VITALS: Temperature of 98.4 degrees, pulse 64, respiratory rate 12, blood pressure 139/62, saturating 92% on room air. PHYSICAL EXAMINATION: General: Not in acute distress. Oral cavity: Moist. Lungs: Air entry bilaterally equal. No wheeze or crackles. Heart: S1, S2 normal. No murmur, gallop, or rub. Chest: He does not have any chest wall tenderness. Abdomen: He does not have any abdominal tenderness today. It is soft, nontender. Active bowel sounds. Extremities: No lower extremity edema. Neck: No jugular venous distention. Neurologic: He is alert and oriented x3. LABORATORY DATA: His CBC and BMP are unremarkable. His blood glucose is 213. MICROBIOLOGY: No new data. IMAGING: Abdominal ultrasound performed. Had contracted gallbladder without any gallstones or definitive gallbladder wall thickening. Mildly prominent liver with evidence of hepatic steatosis. ASSESSMENT AND PLAN: 1. Atypical chest pain at rest, with history of coronary artery disease and myocardial infarction requiring stenting in year 2009 and 2012. His stress test in April 2019 was largely unremarkable, and his echocardiogram in April 2019 was also largely unremarkable without any left ventricular dysfunction. Cardiology team currently recommends medical management due to absence of any objective signs of myocardial ischemia. Continue aspirin, high dose atorvastatin, metoprolol, as needed nitroglycerin, and continue ranolazine. His electrocardiogram on admission and troponins have been unremarkable. I will follow up with electrocardiogram tomorrow. 2. History of paroxysmal atrial fibrillation, currently in sinus rhythm. He takes Xarelto at home. Continue Xarelto. 3. History of left lower extremity deep venous thrombosis and pulmonary embolism in 2016. His current CT scan is negative for pulmonary embolism. Followup ultrasound of lower extremities. Will continue his home Xarelto. 4. History of insulin-dependent diabetes mellitus type 2. Continue home dose of insulin, metformin, and sitagliptin. 5. Essential hypertension, hyperlipidemia, and chronic gastroesophageal reflux disease. Continue his home medications of pantoprazole and atorvastatin, and I will add nighttime famotidine to see if that helps, since his acid reflux could also be contributing to his chest pain symptoms. 6. Disposition. Patient does not have a ride and he still has some chest pain moving from right chest to left. I will start him on nighttime famotidine and observe him, and potentially discharge him early tomorrow morning. Plan of care discussed with him. His questions have been answered. cc: Sunny Gray MD
[2019-08-12] MEDS ORDERED: PEPCID PO SCH (21:00)
[2019-08-12] MEDS: LIPITOR PO SCH (21:04)
[2019-08-13 06:40] LABS: BASO# 0.02 X1000 (0.0-0.2); BASO% 0.3 % (0.0-0.8); EOS# 0.11 X1000 (0.0-0.7); EOS% 1.6 % (0.0-10.0); HEMATOCRIT 43.6 % (42.0-52.0); HEMOGLOBIN 14.3 g/dL (14.0-18.0); LYMPH# 1.78 X1000 (1.2-3.4); LYMPH% 25.1 % (20.5-51.1); MCH 28.3 PG (27-31); MCHC 32.8 g/dL (33-37); MCV 86.2 FL (81-99); MONO# 0.75 X1000 (0.11-0.59); MONO% 10.6 % (1.7-9.3); MPV 10.6 FL (7.4-10.4); NEUT# 4.42 X1000 (1.4-6.5); NEUT% 62.4 % (42.2-75.2); PLT 262 X1000 (130-400); RBC 5.06 XMIL (4.7-6.1); RDW 15.3 % (11.5-14.5); WBC 7.08 X1000 (4.8-10.8)
[2019-08-13 07:11] LABS: AGAP 11; ALB/GLOB RATIO 1.3; ALBUMIN 3.9 g/dL (3.5-5.0); ALKALINE PHOSPHATASE 89 U/L (32-122); BUN 14 mg/dL (8-22); CALCIUM 9.3 mg/dL (8.8-10.2); CHLORIDE 106 mmol/L (98-107); COSMO 283; ESTIMATED GFR > 60; GLUCOSE 93 mg/dL (70-104); GOT 20 U/L (10-34); GPT 26 U/L (10-44); MAGNESIUM 2.1 mg/dL (1.5-2.7); POTASSIUM 3.8 mmol/L (3.5-5.1); SODIUM 142 mmol/L (136-145); TCO2 25 mmol/L (25-35); TOTAL BILIRUBIN 0.48 mg/dL (0.20-1.00); TOTAL PROTEIN 6.8 g/dL (6.3-8.3)
--- NOTE | 2019-08-13 07:23 | EKG Report ---
Test Performed on : 08/13/2019 06:36:58 AM Test Reason : Chest pain. Rule out new ST [place] Blood Pressure : / mmHG Vent. Rate : 065 BPM Atrial Rate : 065 BPM P-R Int : 170 ms QRS Dur : 096 ms QT Int : 450 ms P-R-T Axes : 053 052 035 degrees QTc Int : 468 ms Sinus rhythm. with occasional premature ventricular complexes. Otherwise normal ECG When compared with ECG of 11-AUG-2019 06:39, premature ventricular complexes. are now present Confirmed by Mirian JIMENEZ, Luis ([id number]) on 08/15/2019 10:31:55 AM
[2019-08-13] MEDS: GLUCOPHAGE PO SCH (09:02)
[2019-08-13] MEDS: ASPIRIN PO SCH (09:02)
[2019-08-13] MEDS: JANUVIA PO SCH (09:02)
[2019-08-13] MEDS: PROTONIX PO SCH (09:02)
[2019-08-13] MEDS: RANEXA PO SCH (09:02)
[2019-08-13] MEDS: HUMALOG MIX 75/25 SUBQ SCH (09:03)
[2019-08-13] MEDS: LOPRESSOR PO SCH (09:03)
--- NOTE | 2019-08-13 10:42 | Extremity Venous Study ---
PROCEDURE NAME: Venous U/S Bilateral Legs - 08/10/2019 REQUESTING PROVIDER: Sergey. INFORMATION SERVICES CONSULTANT: Ciaran. INDICATIONS: History of DVT. EQUIPMENT: [employer] Vivid E9 ultrasound system and a 9 L-D transducer. FINDINGS: Images of bilateral lower extremity venous systems were obtained in both sagittal and transverse planes. Doppler was used to evaluate veins for spontaneity, phasicity, respiratory excursion, and digital augmentation. Results are normal venous compression. Normal venous flow. No obvious superficial or deep venous thrombosis noted. INTERPRETATION: Essentially normal bilateral lower extremity venous study. cc: MD Tyra Griffin CRNP
[2019-08-13 11:57] VITALS: BP 141/71
[2019-08-13] MEDS ORDERED: INSULIN PEN NEEDLES ONE (12:21)
--- NOTE | 2019-08-27 12:58 | DISCHARGE SUMMARY ---
ADMISSION DATE: 08/10/2019 DISCHARGE DATE: 08/13/2019 DISCHARGE DIAGNOSES: 1. Atypical chest pain. 2. Hypertension. 3. History of left lower extremity deep venous thrombosis and pulmonary embolism, on chronic anticoagulation 4. Insulin-dependent diabetes mellitus, type 2. 5. Gastroesophageal reflux disease. 6. Hyperlipidemia. CONSULTATIONS: Cardiology consultation with Dr. Manzano. HOSPITAL COURSE: Mr. Casas is a 64-year-old male, with a history of multiple medical problems, who presented to the ER with a chief complaint of chest pain. The patient was admitted to the hospitalist service and serial cardiac enzymes were obtained. Given the patient's cardiac history, Cardiology was consulted for further recommendations. The patient was noted to have negative cardiac enzymes, and his EKGs were unremarkable. The patient also had an abdominal ultrasound done that showed a contracted gallbladder but no other abnormality. The patient had no further chest pain while hospitalized and was ultimately cleared for discharge home on 08/13/2019. DISCHARGE MEDICATIONS: 1. Ranexa 500 mg oral every 12 hours. 2. Aspirin 81 mg oral daily. 3. Lipitor 80 mg p.o. at bedtime. 4. Xarelto 20 mg oral daily. 5. Lopressor 12.5 mg oral twice a day. 6. Protonix 40 mg p.o. daily. 7. Tylenol No. 3, 1 tab oral every 6 hours p.r.n. for pain. 8. Janumet 1 tab oral twice a day. 9. Humalog 75/25, 58 units in the morning and 54 units at bedtime. DISCHARGE DIET: 1800 ADA diet; low-sodium, low-cholesterol diet. ACTIVITY: As tolerated. FOLLOWUP INSTRUCTIONS: The patient will need to follow up with Dr. Garrett in 2 weeks. cc: Lissa Raymond MD
== END 2019-08-13 12:28 | disposition home or self-care (01) | DRG 303 ==
LOC: P.ED 12:30 → SUATTDRO 15:53 → P.MEDSURG 15:53 → 2N 18:17
PROVIDERS: ATTEND Internal Medicine

== ENCOUNTER 2019-09-05 09:19 | Inpatient (IN) ==
[2019-09-05] MEDS ORDERED: NS 1,000 ML IV PRN (09:43)
[2019-09-05] MEDS ORDERED: NS 500 ML IV ONE (09:59)
[2019-09-05 10:20] LABS: URINE SOURCE CLEAN CATCH
--- NOTE | 2019-09-05 10:24 | Diag Imaging Result Doc PS360 ---
EXAM: CHEST-PORTABLE HISTORY: fainting TECHNIQUE: Single view COMPARISON: 08/10/2019 FINDINGS: The lungs are well expanded. The heart is not enlarged. The vessels are not distended. There are left upper lobe infiltrates inferiorly. No effusion identified. IMPRESSION: Left upper lobe pneumonia Electronically signed by Damian Andrew 09/05/2019 10:21 AM
[2019-09-05 10:29] LABS: BILIRUBIN URINE NEGATIVE (NEGATIVE); BLOOD URINE NEGATIVE (NEGATIVE); COLOR YELLOW; GLUCOSE URINE 300 mg/dL (NEGATIVE); KETONE URINE NEGATIVE (NEGATIVE); LEUKOCYTES URINE NEGATIVE (NEGATIVE); NITRITE URINE NEGATIVE (NEGATIVE); PROTEIN URINE TRACE mg/dL (NEGATIVE); SP GRAVITY URINE 1.022; TURBIDITY URINE CLEAR (CLEAR); UR EPITHELIAL CELLS <10 /HPF (<10); URINE BACTERIA NEGATIVE /HPF; URINE RBC <10 /HPF (<10); URINE WBC <10 /HPF (<10); UROBILINOGEN URINE NORMAL (NORMAL)
[2019-09-05 10:35] LABS: BASO# 0.02 X1000 (0.0-0.2); BASO% 0.3 % (0.0-0.8); EOS# 0.12 X1000 (0.0-0.7); EOS% 1.7 % (0.0-10.0); HEMOGLOBIN 14.8 g/dL (14.0-18.0); IMM GRAN# 0.01 X1000 (0.0-0.04); IMM GRAN% 0.1 % (0.0-0.5); LYMPH# 1.88 X1000 (1.2-3.4); MCH 27.2 PG (27-31); MCHC 32.2 g/dL (33-37); MCV 84.6 FL (81-99); MONO# 0.59 X1000 (0.11-0.59); MONO% 8.2 % (1.7-9.3); MPV 10.2 FL (7.4-10.4); NEUT# 4.61 X1000 (1.4-6.5); NEUT% 63.7 % (42.2-75.2); PLT 429 X1000 (130-400); RBC 5.44 XMIL (4.7-6.1); RDW 15.3 % (11.5-14.5); WBC 7.23 X1000 (4.8-10.8)
[2019-09-05 10:38] LABS: INR 1.98; PROTIME 23.7 Seconds (11.0-16.0)
[2019-09-05 10:39] LABS: PTT 38.8 Seconds (22.3-41.8)
[2019-09-05 10:41] LABS: UR AMPHETAMINES QUAL NONE DETECTED (NONE DETECT); UR BARBITUATES QUAL NONE DETECTED (NONE DETECT); UR BENZODIAZEPIN QUAL NONE DETECTED (NONE DETECT); UR CANNABINOIDS QUAL NONE DETECTED (NONE DETECT); UR COCAINE QUAL NONE DETECTED (NONE DETECT); UR METHADONE QUAL NONE DETECTED (NONE DETECT); UR METHAMPHETAMINE QUAL NONE DETECTED (NONE DETECT); UR OPIATES QUAL NONE DETECTED (NONE DETECT); UR OXYCODONE QUAL NONE DETECTED (NONE DETECT); UR PCP QUAL NONE DETECTED (NONE DETECT); UR PROPOXYPHENE QUAL NONE DETECTED (NONE DETECT); UR TCA QUAL NONE DETECTED (NONE DETECT)
[2019-09-05 11:03] LABS: AGAP 13; ALKALINE PHOSPHATASE 84 U/L (32-122); BUN 11 mg/dL (8-22); CALCIUM 10.1 mg/dL (8.8-10.2); CHLORIDE 103 mmol/L (98-107); COSMO 285; CREATININE 0.7 mg/dL (0.7-1.2); ESTIMATED GFR > 60; GLUCOSE 174 mg/dL (70-104); GOT 17 U/L (10-34); GPT 26 U/L (10-44); POTASSIUM 4.8 mmol/L (3.5-5.1); SODIUM 141 mmol/L (136-145); TCO2 25 mmol/L (25-35); TOTAL PROTEIN 7.6 g/dL (6.3-8.3)
[2019-09-05] MEDS ORDERED: NS 1,000 ML IV ONE (11:24)
--- NOTE | 2019-09-05 11:38 | PROVIDER DOCUMENTATION ---
This chart was entered by Krista Mora Scribe, acting as scribe for Leslye Alamo MD. HPI-General Adult - General Chief Complaint: Dizziness Stated Complaint: NAUSEA / DIZZY Time Seen by Provider: 09/05/19 09:39 Source: patient, family () Allergies/Adverse Reactions: Patient Allergies Allergy/AdvReac Type Severity Reaction Status Date / Time adhesive Allergy RASH Verified 02/16/18 12:55 iodine Allergy RASH Verified 02/16/18 12:55 latex Allergy RASH Verified 02/16/18 12:55 Home Medications: Home Medication List Medication Instructions Recorded Confirmed Last Taken Type ATORVAstatin [Lipitor] 80 mg PO HS 07/16/16 09/05/19 09/05/19 History Rivaroxaban [Xarelto] 20 mg PO DAILY #180 tablet 07/19/16 09/05/19 09/05/19 Rx Metoprolol Tartrate 12.5 mg PO BID 02/16/18 09/05/19 09/05/19 History Pantoprazole Sodium 40 mg PO DAILY 02/16/18 09/05/19 09/05/19 History Insulin Humalog 75/25 [Humalog Mix 54 units SQ WSUPPER 08/11/19 09/05/19 09/04/19 History 75/25] Insulin Humalog 75/25 [Humalog Mix 58 units SQ QAM 08/11/19 09/05/19 09/05/19 History 75/25] Sitagliptin Phos/Metformin HCl 1 tab PO BID CC 08/11/19 09/05/19 09/05/19 History [Janumet 50-1,000 mg Tablet] Ranolazine E.r. [Ranexa] 500 mg PO Q12HR #60 tab 08/13/19 09/05/19 09/05/19 Rx Esomeprazole Magnesium [Nexium] 20 mg PO DAILY #30 capsule. 09/05/19 Unknown Rx Nitroglycerin Sl [Nitroglycerin] 1 tab SUBLINGUAL DIRECTED 09/05/19 09/05/19 Unknown History Sucralfate [Carafate Liquid] 1 gm PO Q6HR #400 ml 09/05/19 Unknown Rx - History of Present Illness -Gen Adult Nature of Presenting Problems: 64 yowm presents to the ed with c/o dizziness, sob (chronic) and nausea that has been intermittent for 2 weeks. pt has recently seen PMD but did not tell them of these sx. pt on exam is nontoxic in appearance Location of Pain/Injury: reports: none Pain Radiation: reports: no radiation Quality of Pain: reports: none Severity: reports: mild (dizziness and nausea) Onset/Duration: reports: other (2 weeks) Timing: reports: intermittent Context/Activities at Onset: reports: light activity Modifying Factors: improves with: immobilization. worse with: other (standing makes worse) Associated Symptoms: reports: dizziness, nausea, shortness of breath. denies: back/neck pain, chest pain, diarrhea, fever/chills, muscle aches, vomiting Similar Symptoms Previously?: Yes Recently seen or treated by another doctor?: Yes (pmd) Review of Systems - Adult - REVIEW OF SYSTEMS - ADULT Constitutional: denies: chills, fever Eyes: denies: blurred vision, double vision Ears, Nose, Mouth & Throat: reports: no symptoms reported Cardiovascular: denies: chest pain, palpitations Respiratory: reports: see HPI, shortness of breath. denies: cough, wheezing Gastrointestinal: reports: nausea. denies: diarrhea, vomiting Genitourinary: reports: no symptoms reported Musculoskeletal: denies: back pain, neck pain Integumentary: reports: no symptoms reported Neurological: reports: see HPI, dizziness/vertigo. denies: headache/migraines, slurred speech, syncope, tremors Psychiatric: reports: no symptoms reported Endocrine: reports: no symptoms reported Hematologic/Lymphatic: reports: no symptoms reported Allergic/Immunologic: reports: no symptoms reported All Other Systems: Reviewed and Negative Past History - Adult - PAST MEDICAL HISTORY-ADULT Review of Records: reports: Old Records Reviewed, Nursing Assessment Review, Medications Reviewed, Social history reviewed & non-contributory. Major Childhood Illnesses: reports: denies history Cardiovascular: reports: CAD, HTN, hyperlipidemia, [place] Respiratory: reports: denies history Gastrointestinal: reports: GERD Genitourinary: reports: kidney stones (passed renal stones), other (TURP July 15, 2016) Musculoskeletal: reports: chronic pain Neurological: reports: denies history Endocrine/Immune: reports: Diabetes Diabetes Type: Type 2 Other Conditions: reports: denies history - PRIOR SURGERIES/PROCEDURES Surgical/Procedure History: reports: cardiac stent, other (TURP) - IMMUNIZATION STATUS Childhood Immunizations: See Nurse Assessment Flu Vaccine: See Nurse Assessment - FAMILY HISTORY Family History: reviewed, not pertinent - SOCIAL HISTORY Smoking: denies Substance Use: denies Living Situation: family Physical Exam-General - PHYSICAL EXAM-ADULT Initial Vital Signs Reviewed: Yes - CONSTITUTIONAL General Appearance: appears well, alert, no apparent distress, obese - EYES Eyes: PERRL/EOMI, pink conjunctivae - HEAD, EARS, NOSE, MOUTH & THROAT HENMT: moist mucous membranes, dental decay, other (well healed scar noted to rt lower face) - NECK Neck: non-tender, full range of motion, supple, normal inspection - RESPIRATORY Respiratory: chest non-tender, lungs clear, normal breath sounds - CARDIOVASCULAR Cardiovascular: normal peripheral pulses, regular rate, rhythm - CHEST (BREASTS) Chest/Breast: deferred - GASTROINTESTINAL (ABDOMEN) Abdominal Exam: normal bowel sounds, non tender, soft, other (c/o nausea) - GENITOURINARY Male Genitalia: deferred Rectal Exam: deferred Hemoccult Exam: deferred - LYMPHATIC Lymphatic: no adenopathy - MUSCULOSKELETAL Back Exam: normal inspection, no CVA tenderness, no vertebral tenderness Extremity: normal range of motion, non-tender, normal gait, normal inspection - SKIN Integumentary: normal color, normal turgor, warm/dry - NEUROLOGIC Neurologic: grossly normal - PSYCHIATRIC Psych/Mental Status: normal mood/affect, normal thought content, normal thought process, oriented x 3 Progress - PLAN OF CARE/RESULTS Progress/Plan/Lab Results: Vital Signs - 8 hr 09/05/19 09:34 Temperature 97.4 F L Pulse Rate 63 Respiratory Rate 20 Blood Pressure 123/74 O2 Sat by Pulse Oximetry 98 Result Diagrams: 09/05/19 10:08 09/05/19 10:08 - REASSESSMENT Reassessment #1 Time Reassessed: 11:37 Status: improving (patient felt better, did not want to stay or admitted, stated he wanted to go home and watch his symptoms at home, patient was asymptomatic at this time) - EKG 1 Time of EKG reading by physician:: 09:40 EKG Read and Signed by:: Leslye Alamo EKG Interpretation (*Must complete 3 of following elements*): Normal Rate: 64 Rhythm: nsr [place]: normal QRS: normal MD Interval: normal ST Wave: normal - XRAY 1 XRAY: Bilateral XRAY Study: Chest Impression: See EMR Report (EXAM: CHEST-PORTABLE HISTORY: fainting TECHNIQUE: Single view COMPARISON: 08/10/2019 FINDINGS: The lungs are well expanded. The heart is not enlarged. The vessels are not distended. There are left upper lobe infiltrates inferiorly. No effusion identified. IMPRESSION: Left upper lobe pneumonia Electronically signed by Damian Andrew 09/05/2019 10:21 AM 09/05/19 1021 Interpreting Physician: Damian Andrew MD Dictated Date/Time: 09/05/19 1021 cc: Leslye Alamo MD; Lee Ann Ashley) - CONSULTS/PCP/HOSPITALIST Notification #1 *Consult/PCP/Hospitalist*: hospitalist dr calvert Time Discussed: 11:47 Consult Disposition: Will see in ED, Admit Departure - Departure Date of Disposition Decision: 09/05/19 Time of Disposition Decision: 11:34 DIAGNOSIS: Orthostatic hypotension Disposition: ADMITTED INPATIENT 09 Certified Medical Emergency: Emergent Condition: Good Prescriptions: Sucralfate [Carafate Liquid] 1 gm PO Q6HR #400 ml Esomeprazole Magnesium [Nexium] 20 mg PO DAILY #30 capsule.dr - Critical Care Note This patient required my direct & personal management of CC.: No Attestation - Physician/ AILEEN Attestation Patient care was provided by Advanced Practice Provider:: No The physician spent face to face time with patient:: Yes Advanced Practice Provider documentation review:: Supervising physician onsite and consulted in the evaluation and care of this patient. The physician did have a face to face encounter with the patient. This chart was documented by the indicated scribe, (Krista Mora Scribe) and accurately reflects the services I performed and decisions made by me, Leslye Alamo MD, as attested by the provider's signature.
--- NOTE | 2019-09-05 12:54 | EKG Report ---
Test Performed on : 09/05/2019 09:40:15 AM Test Reason : ER Blood Pressure : / mmHG Vent. Rate : 064 BPM Atrial Rate : 064 BPM P-R Int : 158 ms QRS Dur : 094 ms QT Int : 418 ms P-R-T Axes : 062 054 031 degrees QTc Int : 431 ms Normal sinus rhythm. Normal ECG When compared with ECG of 13-AUG-2019 06:36, premature ventricular complexes. are no longer present Unconfirmed Result
[2019-09-05] MEDS ORDERED: TYLENOL PO PRN (13:10)
[2019-09-05] MEDS ORDERED: ZOFRAN IV PRN (13:10)
[2019-09-05] MEDS ORDERED: ROCEPHIN 1 GM in NS 50 ML IV SCH (14:00)
[2019-09-05] MEDS ORDERED: TESSALON PO PRN (14:41)
--- NOTE | 2019-09-05 16:10 | Vascular Study Report ---
EXAM: Carotid Ultrasound HISTORY: dizziness; near syncope TECHNIQUE: Carotid Doppler ultrasound COMPARISON: None. FINDINGS: Right: No occlusion in the common carotid artery. There is plaque distally extending into the bulb. Peak systolic velocity in the internal carotid artery 78 cm/s. The ICA/CC ratio is 1.1. Antegrade vertebral flow. Left: No occlusion in the common carotid artery. There is a small amount of plaque in the bulb. The peak systolic velocity in the internal carotid artery 78 cm/s. The ICA/CCA ratio 0.8. Antegrade vertebral flow. IMPRESSION: Mild stenosis within each proximal internal carotid artery of less than 40% Electronically signed by Damian Andrew 09/05/2019 4:08 PM
[2019-09-05] MEDS: HUMALOG (PARKWAY) SUBQ SCH ×2 (16:40→21:48)
[2019-09-05] MEDS ORDERED: HUMALOG MIX 75/25 SUBQ SCH (17:00)
[2019-09-05] MEDS ORDERED: GLUCOPHAGE XR PO SCH (17:00)
[2019-09-05] MEDS: JANUVIA PO SCH (17:10)
--- NOTE | 2019-09-05 18:29 | Diag Imaging Result Doc PS360 ---
EXAM: CT THORAX W/CONTRAST INDICATION: sob; cough; pna TECHNIQUE: This exam was performed using automated exposure control, adjustment of mA or kV according to patient size, and/or use of iterative reconstruction technique. COMPARISON: 08/10/2019 FINDINGS: There is patchy airspace consolidation involving the inferior aspect of the left upper lobe as well as the left lower lobe. There is milder patchy consolidation involving the right middle lobe and anterior segment of the right upper lobe. There is subsegmental atelectasis at the right lung base. There is no pleural fluid collection and no pneumothorax. There are calcified mediastinal and hilar lymph nodes indicating prior granulomatous disease. No new lymphadenopathy is appreciated. There is no cardiomegaly. IMPRESSION: Bilateral patchy airspace consolidation suggesting multilobar pneumonia, more prominent on the left. Electronically signed by Jabier Diaz 09/05/2019 6:26 PM
--- NOTE | 2019-09-05 18:40 | Diag Imaging Result Doc PS360 ---
EXAM: CT ABD/PELVIS W/PO AND IV CON INDICATION: abd pain x 1 month; LLQ RUQ TECHNIQUE: This exam was performed using automated exposure control, adjustment of mA or kV according to patient size, and/or use of iterative reconstruction technique. COMPARISON: 08/10/2019 FINDINGS: There is questionable minimal hepatic steatosis. The liver is grossly unremarkable, otherwise. The gallbladder, spleen, and pancreas are unremarkable. There is a stable 1.7 cm left adrenal nodule. The kidneys and urinary bladder are grossly unremarkable. There is no evidence of bowel wall thickening or bowel obstruction. The remainder of the GI tract is grossly unremarkable. No focal inflammatory changes, free abdominal gas, or free fluid is appreciated. There is no evidence of acute osseous abnormality. IMPRESSION: Stable incidental/nonacute findings detailed above. No definite acute pathology by CT. Electronically signed by Jabier Diaz 09/05/2019 6:38 PM
--- NOTE | 2019-09-05 19:20 | HISTORY AND PHYSICAL ---
PRIMARY CARE PROVIDER: Dr. Elmore and [facility]ORO Bone. RESERVOIR ENGINEERING CONSULTANT: Dr. Garrett. CHIEF COMPLAINT: Dizziness for 1 month and cough for 2 weeks. Abdominal pain for 1 month. HISTORY OF PRESENT ILLNESS: Mr. Luis Casas is a 64-year-old male with a medical history of coronary artery disease and NE in 2009 and in 2013. Also, history of DVT, which he has been on Xarelto for. Apparently, he even had a pulmonary emboli at that time. He states that four days prior to Madalyn Eve he was at [facility] with complaints of chest pain. He was started on Ranexa at that time, and that is when the dizziness actually started as well. He has also noted that he had abdominal pain prior to being there as well in the right upper quadrant, and left lower quadrant, but imaging did not reveal anything significant. However, he is very tender to palpate. He has a round abdomen as well. He has positive bowel sounds, and tends to have bowel movements about once every other day. The dizziness, however, has worsened over the past month. It is worse when he standing. He has had some near syncopal spells, and those spells have made him very nauseated. He has even had weight loss because he has not been able to eat. He has dropped from a weight of 234 pounds down to 223 pounds. Imaging here reveals he has a left upper lobe pneumonia. He states that he went to [facility] where they diagnosed him with bronchitis 2 weeks ago because he was coughing up blood, they gave him a Z-Jaden and sent him home but he has had this nagging cough ever since. However, he is not having to cough with bloody phlegm. He denies any colors when he is coughing anything up. There is no fever, but he is still having some decent shortness of breath as well. We are going to admit him and stop the Ranexa, and go ahead and scan him 1 more time. He will continue on the Xarelto, and see if we can find out what is going on. We may also go ahead and do a carotid ultrasound. His echocardiogram was okay from April. PAST MEDICAL HISTORY: 1. CAD with stents placed in 2009 and 2013 with NE in 2009. 2. Hypertension. 3. Dyslipidemia. 4. Diabetes mellitus type 2. 5. Paroxysmal atrial fibrillation. 6. Pulmonary emboli and left lower extremity DVT in June of 2016 for which he has been on Xarelto for. 7. GERD. 8. Chronic left lower extremity numbness. 9. BPH. PAST SURGICAL HISTORY: 1. Cardiac stents x2, once in 2009, and once in 2013. 2. TURP. 3. Skin lesions removed and frozen on his face. SOCIAL HISTORY: He quit smoking in 1995 and started at the age of 18. Smoked 3 packs per day during that time. Denies alcohol or illicit drug use. on disability. No children. 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 FAMILY HISTORY: Father had a heart attack at 86. He had 2 brothers who had heart attacks, and a mother from leukemia. ALLERGIES: Iodine, adhesive, and latex. HOME MEDICATIONS: 1. Insulin 75/25 58 units subcutaneous daily. 2. Insulin 75/25 54 units with supper. 3. Sitagliptin/metformin 1 tablet p.o. twice daily. 4. Lipitor 80 mg p.o. nightly. 5. Metoprolol tartrate 12.5 mg p.o. twice daily. 6. Nitroglycerin sublingual as needed. 7. Protonix 40 mg p.o. daily. 8. Carafate 1 g p.o. every 6 hours. 9. Ranexa 500 mg p.o. every 12 hours. 10. Nexium 20 mg p.o. daily. 11. Xarelto 20 mg p.o. daily. REVIEW OF SYSTEMS: Fourteen point review of systems are complete, and are negative except those mentioned above HPI. PHYSICAL EXAMINATION: VITAL SIGNS: Temperature 97.7 degrees, heart rate 84, respiratory rate 18, blood pressure 122/65, and O2 saturation 99% on room air. GENERAL: Luis Casas is a 64-year-old male. He is in no acute distress. He is able to answer questions appropriately. HEENT: Atraumatic, normocephalic. Pupils equal, round, and reactive to light. Extraocular movements intact. Mucous membranes are dry. NECK: Trachea midline. CARDIOVASCULAR: S1, S2. Regular rate and rhythm. No rubs, gallops, or murmurs. No lower extremity edema. +2 dorsalis and radial pulses. Negative JVD or carotid bruits. PULMONARY: Mild crackles noted with very fine rhonchi noted in the left middle of the left chest wall anteriorly. Otherwise clear. No accessory muscle use or work of breathing noted. GI: Soft. Round and tender in the right upper quadrant and left lower quadrant to the point of facial grimacing. Positive bowel sounds. EXTREMITIES: Moves all extremities equally. Full range of motion. NEUROLOGIC: A and O x3. Follows commands. Sensory is intact. SKIN: Warm, dry, and intact. LABORATORY DATA: White blood cells 7000, hemoglobin 14, hematocrit 46, and platelet count 429,000. INR is 1.98, PTT is 38.8. Sodium 141, potassium 4.8, BUN 11, creatinine 0.7, and glucose 174. Calcium 10.1, bilirubin 0.40, AST 17, ALT 26. Troponin 21, albumin 4.0. Urinalysis trace protein and 300 glucose. Urine drug screen negative. IMAGING: Chest x-ray, left upper lobe pneumonia inferiorly. EKG normal sinus rhythm with rate of 64, and QTc is 431. ASSESSMENT/PLAN: 1. Dizziness with near syncopal spells and nausea. He feels like it was after he was started on Ranexa during his stay in the hospital towards the end of July. I is worse when he stands up, and he has it very frequently. We will get a carotid ultrasound to make sure there is not any carotid disease, but otherwise we are going to stop the Ranexa and evaluate the vital signs. It appears that maybe there could be some orthostasis going on. He had around 12:00 today supine heart rate 55, blood pressure 114/62, sitting heart rate 63, blood pressure 115/64, and standing heart rate 75, and blood pressure 103/58. 2. Abdominal pain in the right upper quadrant and left lower quadrant. He has had an abdominal ultrasound, but not with oral contrast. We will do abdominal and pelvic CT. He has bowel movements almost every day to every other day. He says they are normal, but his pain is significant enough that he grimaces when you palpate. 3. Left upper lobe pneumonia with a recent diagnosis of bronchitis 2 weeks ago where he was coughing up blood, but he is not coughing up blood now. Go ahead and get him started on some Rocephin. I want to get a CT of his chest as well to make sure there is nothing else that we are not seeing on a chest x-ray. He has got a constant cough with it. We will do some p.r.n. Tessalon Perles and schedule guaifenesin. So far, he is not hypoxic. He is tolerating room air without any difficulties, and he is not tachypneic. 4. Diabetes mellitus type 2. Pattern blood glucoses and sliding scale insulin. 5. Deep venous thrombosis prophylaxis. He is on Xarelto. We will continue that. He does have a history of DVT's and PE. 6. GERD. Continue proton pump inhibitor. 7. Hypertension. History of coronary artery disease. Continue beta zhane and statin. He is on Xarelto instead of aspirin. They stopped the aspirin because he was having frequent nosebleeds and coughing up blood. Dictated by TORO Galindo for Flash Ramey MD cc: TORO Galindo MD Johnna Langford, CRNP [facility] Powell, MD [facility]
[2019-09-05] MEDS: MUCINEX PO SCH (20:07)
[2019-09-05] MEDS ORDERED: RANEXA PO SCH (21:00)
[2019-09-05] MEDS ORDERED: LIPITOR PO SCH (21:00)
--- NOTE | 2019-09-05 21:23 | HISTORY AND PHYSICAL ---
ADDENDUM: Patient seen and examined by myself. Full note dictated and discussed with nurse practitioner. Patient presented to the hospital initially complaining of nausea, dizziness. He subsequently also notes he has been short of breath. Notes that this is chronic. He was recently seen by his primary care, was diagnosed with bronchitis. He does have a known history of coronary artery disease, hypertension and diabetes. On exam, he is awake, alert. He is in no real acute distress. He is pleasant. Labs reviewed with a glucose at 174. Chest x-ray demonstrated left upper lobe pneumonia. We are going to admit to the hospital, place on fluids, antibiotics, breathing treatments for his orthostatic hypotension and pneumonia, continue his home medications, follow his blood sugars. Further orders as needed. cc: Flash Ramey MD
[2019-09-05] MEDS: LOPRESSOR PO SCH (21:49)
[2019-09-06] MEDS: HUMALOG (PARKWAY) SUBQ SCH (06:35)
[2019-09-06 06:54] LABS: HEMATOCRIT 43.2 % (42.0-52.0); HEMOGLOBIN 13.9 g/dL (14.0-18.0); MCH 27.1 PG (27-31); MCHC 32.2 g/dL (33-37); MCV 84.4 FL (81-99); MPV 10.4 FL (7.4-10.4); RBC 5.12 XMIL (4.7-6.1); RDW 15.4 % (11.5-14.5); WBC 7.02 X1000 (4.8-10.8)
[2019-09-06] MEDS ORDERED: PROTONIX PO SCH (07:00)
[2019-09-06 07:27] LABS: AGAP 12; ALBUMIN 3.5 g/dL (3.5-5.0); ALKALINE PHOSPHATASE 76 U/L (32-122); BUN 11 mg/dL (8-22); CALCIUM 9.1 mg/dL (8.8-10.2); CHLORIDE 105 mmol/L (98-107); COSMO 279; CREATININE 0.6 mg/dL (0.7-1.2); ESTIMATED GFR > 60; GLUCOSE 173 mg/dL (70-104); GOT 16 U/L (10-34); GPT 23 U/L (10-44); MAGNESIUM 1.9 mg/dL (1.5-2.7); POTASSIUM 4.2 mmol/L (3.5-5.1); SODIUM 138 mmol/L (136-145); TCO2 21 mmol/L (25-35); TOTAL PROTEIN 6.9 g/dL (6.3-8.3)
[2019-09-06] MEDS ORDERED: HUMALOG MIX 75/25 SUBQ SCH (08:00)
[2019-09-06 08:34] VITALS: BP 121/68
[2019-09-06] MEDS: JANUVIA PO SCH (10:08)
[2019-09-06] MEDS: MUCINEX PO SCH (10:08)
[2019-09-06] MEDS: LOPRESSOR PO SCH (10:08)
[2019-09-06] MEDS ORDERED: XARELTO PO SCH (17:00)
--- NOTE | 2019-09-07 05:20 | DISCHARGE SUMMARY ---
ADMISSION DATE: 09/05/2019 DISCHARGE DATE: 09/06/2019 ADDENDUM: Patient seen and examined by myself. Full note dictated and discussed with nurse practitioner. On discharge, patient is awake, alert, in no distress. Notes that each time he took Ranexa he became lightheaded and dizzy. He has been off Ranexa for 24 hours. He has had no further symptoms. He is ambulating without any difficulty. DISPOSITION: Patient will be discharged home. Discussed with him that he needs follow up outpatient with Cardiology to discuss other options. cc: Flash Ramey MD
--- NOTE | 2019-09-07 14:35 | DISCHARGE SUMMARY ---
ADMISSION DATE: 09/05/2019 DISCHARGE DATE: 09/06/2019 ADMISSION AND DISCHARGE DIAGNOSES: 1. Dizziness with near syncopal spells and nausea. 2. Abdominal pain in the right upper and left lower quadrant. 3. Left upper lobe pneumonia with recent diagnosis of bronchitis 2 weeks ago. 4. Diabetes mellitus type 2. 5. Gastroesophageal reflux disease. 6. Hypertension. 7. History of coronary artery disease. 8. Bilateral multilobar pneumonia, left greater than right. 9. Orthostatic hypotension. CONSULTATIONS: None. SURGERIES AND PROCEDURES: None. HOSPITAL COURSE: Mr. Luis Casas is a 64-year-old male who comes in with complaints of dizziness for 1 month and a cough for 2 weeks along with abdominal pain for 1 month. Workup revealed that he has actual bilateral multilobar pneumonia. The dizziness most likely is a result of being started on Ranexa, so that was held and then the abdominal pain workup never really revealed the cause for that. He remained stable. He has had some weight loss secondary to the nausea and vomiting that had from the dizziness. While he was here, we started him on Rocephin, some guaifenesin. For his diabetes, he was started on sliding scale insulin and his blood pressure remained stable while he was here. Occasionally he became bradycardic with his heart rate but only to the 50s with stable blood pressure. DISCHARGE VITAL SIGNS: Temperature 97.3 degrees, heart rate 65, respiratory rate 20, blood pressure 121/68, O2 saturation 98% on room air. DISCHARGE LABORATORY DATA: White blood cells 7000, hemoglobin 13, hematocrit 43, platelet count 370,000. Sodium 138, potassium 4.2, BUN 11, creatinine 0.6, glucose 173, calcium 9.1. Magnesium 1.9. Bilirubin 0.40, AST 16, ALT 23. Albumin 3.., TSH 0.46. PERTINENT IMAGIN. Chest x-ray left. Left upper lobe pneumonia. 2. Abdominal and pelvic CT. No acute findings. Liver hepatosteatosis. 3. Chest CT. Bilateral patchy airspace consolidations suggesting multilobar pneumonia that is more prominent on the left. 4. Carotid Dopplers. Mild stenosis, less than 40% bilaterally. 5. EKG was normal sinus rhythm, rate 64, QTc 431. DISCHARGE MEDICATIONS: 1. Insulin 75/25, 58 units in the morning and 54 units in the evening with supper. 2. Sitagliptin/metformin 1 tablet p.o. twice a day. 3. Lipitor 80 mg p.o. nightly. 4. Metoprolol tartrate 12.5 mg p.o. twice a day. 5. Nitroglycerin sublingual as needed. 6. Protonix 40 mg p.o. daily. 7. Carafate 1 g p.o. every 6 hours. 8. Nexium 20 mg p.o. daily. 9. Cefdinir/Omnicef 300 mg p.o. twice a day for a total of 7 days. 10. Xarelto 20 mg p.o. daily. PHYSICIAN FOLLOWUP: TORO Bone. DISCHARGE ACTIVITY: As tolerated. DISCHARGE DIET: Heart healthy. DISCHARGE INSTRUCTIONS: If your condition changes, contact a physician and/or return to the emergency department. Changes may include but are not limited to shortness of breath, increased fatigue, excessive bleeding, unexplained weight loss or gain, unmanageable pain, signs or symptoms of infection. DISCHARGE DISPOSITION: Home. Dictated by TORO Galindo for Flash Ramey MD cc: TORO Galindo MD
== END 2019-09-06 10:30 | disposition home or self-care (01) | DRG 195 ==
LOC: P.ED 09:19 → P.MEDSURG 13:40
PROVIDERS: ATTEND Family Medicine